=== PATIENT | male | born 1985 ===

== ENCOUNTER 2018-08-15 17:40 | Emergency (ER) | payer SELFPAY ==
[2018-08-15 17:52] VITALS: BMI 32.3
[2018-08-15 17:54] VITALS: BP 147/83; PULSE 85; RESP 16; TEMP 98.5; O2SAT 100
--- NOTE | 2018-08-15 18:53 | C.PDOC ---
History Of Present Illness 33 y/o male presents to the ED for evaluation of low back pain for 1 week. Patient states he was in the gym 1 week ago exercising, and the next day awoke with back pain. He is unsure which exercise may have contributed to the pain. Patient has tried wearing a back brace, applying Lidoderm patches, and taking Tylenol without relief. He denies any fevers, chills, change in urination, or abdominal pain. Time Seen by Provider: 08/15/18 18:35 Chief Complaint (Nursing): Back Pain History Per: Patient History/Exam Limitations: no limitations Onset/Duration Of Symptoms: Days (x7) Current Symptoms Are (Timing): Still Present Associated Symptoms: None Past Medical History Reviewed: Historical Data, Nursing Documentation, Vital Signs Vital Signs: Last Vital Signs Temp 98.5 F 08/15/18 17:52 Pulse 85 08/15/18 17:52 Resp 16 08/15/18 17:52 BP 147/83 08/15/18 17:52 Pulse Ox 100 08/15/18 17:52 - Medical History PMH: No Chronic Diseases Surgical History: No Surg Hx Family History: States: Unknown Family Hx - Social History Hx Alcohol Use: No Hx Substance Use: No - Immunization History Hx Tetanus Toxoid Vaccination: No Hx Influenza Vaccination: No Hx Pneumococcal Vaccination: No Review Of Systems Constitutional: Negative for: Fever, Chills, Weakness Eyes: Negative for: Redness, Other (scleral icterus) ENT: Negative for: Mouth Swelling Cardiovascular: Negative for: Chest Pain Respiratory: Negative for: Cough, Shortness of Breath Gastrointestinal: Negative for: Nausea, Vomiting, Abdominal Pain, Diarrhea Genitourinary: Negative for: Dysuria, Hematuria Musculoskeletal: Positive for: Back Pain Skin: Negative for: Rash Neurological: Negative for: Weakness, Numbness, Incoordination Physical Exam - Physical Exam Appears: Well, Non-toxic, No Acute Distress Skin: Normal Color, Warm, No Rash Head: Atraumatic, Normacephalic Eye(s): bilateral: Normal Inspection (no scleral icterus), PERRL, EOMI Oral Mucosa: Moist Neck: Normal ROM, Supple Chest: Symmetrical Respiratory: No Accessory Muscle Use, Other (No respiratory distress) Gastrointestinal/Abdominal: Soft, No Distention Back: No Vertebral Tenderness, Paraspinal Tenderness (to paralumbar region), No Straight Leg Raising, Other (Patient is standing upright, pain is increased when he bends down) Extremity: Bilateral: Atraumatic, Normal Color And Temperature, Normal ROM (Strength equal to all extremities) Pulses: Left Radial: Normal, Right Radial: Normal Neurological/Psych: Oriented x3, Normal Cranial Nerves, Normal Motor, Normal Sensation Gait: Steady ED Course And Treatment O2 Sat by Pulse Oximetry: 100 (RA) Pulse Ox Interpretation: Normal Medical Decision Making Medical Decision Making: Impression: Low back pain Plan: Patient will be discharged home with Rx for Tramadol. Advised to follow up with PMD or the clinic. Disposition Counseled Patient/Family Regarding: Diagnosis, Need For Followup, Rx Given - Disposition Referrals: Sage Best III, MD [Staff Provider] - Disposition: HOME/ ROUTINE Disposition Time: 18:51 Condition: GOOD Prescriptions: RX: traMADol [Ultram] 50 mg PO TID PRN #15 tab PRN Reason: Pain, Severe (8-10) Instructions: Low Back Pain in Adults Forms: Gen Discharge Inst Amharic, [employer] (Amharic), Work Excuse Print Language: M[place] - POA Present On Arrival: None - Clinical Impression Clinical Impression: Low back pain - PA / DESIGN [employer] / Resident Statement MD/DO has reviewed & agrees with the documentation as recorded. - Scribe Statement The provider has reviewed the documentation as recorded by the Scribmaty Mendiola All medical record entries made by the Scribe were at my direction and personally dictated by me. I have reviewed the chart and agree that the record accurately reflects my personal performance of the history, physical exam, medical decision making, and the department course for this patient. I have also personally directed, reviewed, and agree with the discharge instructions and disposition.
== END 2018-08-15 19:02 | disposition home or self-care (01) ==
LOC: C.ER 17:40
DX: M54.5 Low back pain (principal)